=== PATIENT | female | born 1930 | race American Indian/Alaskan Native ===

== ENCOUNTER 2016-10-09 15:59 | Outpatient (CLI) | payer MEDICARE ==
--- NOTE | 2016-10-10 08:20 | Mammography Report ---
BILATERAL DIGITAL SCREENING MAMMOGRAM with CAD : 10/09/16 15:59:00 CLINICAL: Routine screening. COMPARISON:04/20/15 FINDINGS: The breasts are heterogeneously dense, which may obscure small masses.A right outer parenchymal asymmetry is unchanged compared to prior exams. No mass, architectural distortion or suspicious calcifications. IMPRESSION: No mammographic evidence of malignancy. BI-RADS CATEGORY: 2 -- Benign RECOMMENDATION: Routine mammographic screening in one year. COMMENT: Patient follow-up letters are generated by our [employer] application.
== END 2016-10-09 16:00 | disposition home or self-care (01) ==
LOC: SPVWC 15:59
DX: Z12.31 Encounter for screening mammogram for malignant neoplasm of breast (principal)
CPT/HCPCS: 77067; G0202

== ENCOUNTER 2017-10-19 14:02 | Outpatient (CLI) | payer MEDICARE ==
--- NOTE | 2017-10-19 15:37 | Mammography Report ---
BILATERAL DIGITAL SCREENING MAMMOGRAM with CAD: 10/19/17 14:02:00 CLINICAL: Routine screening. COMPARISON:10/09/16 and 04/20/15 FINDINGS: The breasts are heterogeneously dense, which may obscure small masses. A new right upper asymmetry requires additional imaging.No architectural distortion or suspicious calcifications.The left breast is negative. IMPRESSION: Right asymmetry requiring further workup. BI-RADS CATEGORY: 0 -- Additional Imaging Evaluation Required RECOMMENDATION: Recall for right mediolateral and spot magnification MLO views and right breast ultrasound if needed. ACR BI-RADS MAMMOGRAPHIC CODES: 0 = Needs additional imaging evaluation; 1 = Negative; 2 = Benign; 3 = Probably benign; 4 = Suspicious; 5 = Malignant; 6 = Known biopsy-proven malignancy COMMENT: 1. Dense breast tissue, i.e., adenosis, fibrocystic changes, etc., may obscure an underlying neoplasm. 2. Approximately 10% of cancers are not detected with mammography. 3. A negative mammography report should not delay biopsy if a clinically suspicious mass is present. COMMENT: Patient follow-up letters are generated via our [employer] application.
== END 2017-10-19 14:03 | disposition home or self-care (01) ==
LOC: SPVWC 14:02
DX: Z12.31 Encounter for screening mammogram for malignant neoplasm of breast (principal)
CPT/HCPCS: 77067

== ENCOUNTER 2017-10-29 12:39 | Outpatient (CLI) | payer MEDICARE ==
--- NOTE | 2017-10-29 16:08 | Ultrasound Report ---
RIGHT DIGITAL DIAGNOSTIC MAMMOGRAM and RIGHT BREAST ULTRASOUND: 10/29/17 12:39:00 CLINICAL: Recalled for asymmetry. COMPARISON:10/19/17 screening FINDINGS: ML and spot magnification MLO views were performed and are negative. Ultrasound of the upper outer right breast was performed and demonstrated no mass, cyst or shadowing. IMPRESSION: Negative mammogram and negative right breast ultrasound. BI-RADS CATEGORY: 2 - - Benign RECOMMENDATION: Routine mammographic screening in one year. ACR BI-RADS MAMMOGRAPHIC CODES: 0 = Needs additional imaging evaluation; 1 = Negative; 2 = Benign; 3 = Probably benign; 4 = Suspicious; 5 = Malignant; 6 = Known biopsy-proven malignancy COMMENT: 1. Dense breast tissue, i.e., adenosis, fibrocystic changes, etc., may obscure an underlying neoplasm. 2. Approximately 10% of cancers are not detected with mammography. 3. A negative mammography report should not delay biopsy if a clinically suspicious mass is present. COMMENT: Patient follow-up letters are generated via our [employer] application.
== END 2017-10-29 12:40 | disposition home or self-care (01) ==
LOC: SPVWC 12:39
DX: R92.8 Other abnormal and inconclusive findings on diagnostic imaging of breast (principal)

== ENCOUNTER 2019-01-29 07:06 | Emergency (ER) | payer MEDICARE ==
[2019-01-29] MEDS ORDERED: MORPHINE 4 MG/1 ML INJ IV ONE (07:23)
[2019-01-29] MEDS ORDERED: ONDANSETRON 4 MG/2 ML INJ IV ONE (07:23)
[2019-01-29] MEDS ORDERED: SODIUM CHLORIDE 0.9% 1000 ML 1,000 ML IV ONE (07:23)
--- NOTE | 2019-01-29 07:29 | Emergency Department Report ---
ED Abdominal Pain HPI - General Stated Complaint: CHEST PAIN Time Seen by Provider: 01/29/19 07:09 - History of Present Illness Initial Comments: Patient is 88-year-old female with recent diagnosis of hepatic cyst for which drainage was applied twice at [facility]. Last drainage was 2 weeks ago with a drainage in place. Patient stated that she was fine until this morning when she woke up and found that she is having right upper quadrant pain. Patient stated that she noticed that the drainage is becoming more cloudy. Patient denied any fever or chills. Patient also denied any nausea or vomiting. Patient denied any left sided or right-sided chest pain. She also denied any shortness of breath. MD Complaint: abdominal pain - Related Data Home Medications Medication Instructions Recorded Confirmed Last Taken Citalopram [celeXA] 10 mg PO QDAY 01/29/19 01/29/19 01/28/19 Clopidogrel [Plavix] 75 mg PO QDAY 01/29/19 01/29/19 01/28/19 Dronabinol [Marinol] 2.5 mg PO BID 01/29/19 01/29/19 01/28/19 Losartan [Cozaar] 100 mg PO QDAY 01/29/19 01/29/19 01/28/19 Pantoprazole Sodium [Protonix] 40 mg PO QDAC 01/29/19 01/29/19 01/28/19 Pravastatin [Pravachol] 20 mg PO QHS 01/29/19 01/29/19 01/28/19 Sucralfate [Carafate] 1 gm PO Q6HR 01/29/19 01/29/19 01/28/19 Allergies Allergy/AdvReac Type Severity Reaction Status Date / Time No Known Allergies Allergy Unverified 01/29/19 08:33 ED Review of Systems ROS: Stated complaint: CHEST PAIN Other details as noted in HPI Comment: All other systems reviewed and negative Constitutional: denies: chills, fever Respiratory: denies: cough, shortness of breath, SOB with exertion Cardiovascular: denies: chest pain, palpitations Gastrointestinal: abdominal pain. denies: nausea, vomiting, diarrhea, constipation, hematemesis, melena, hematochezia Genitourinary: denies: urgency Musculoskeletal: denies: back pain Neurological: denies: headache, weakness, numbness, paresthesias, confusion, abnormal gait ED Past Medical Hx - Medications Home Medications: Home Medications Medication Instructions Recorded Confirmed Last Taken Type Citalopram [celeXA] 10 mg PO QDAY 01/29/19 01/29/19 01/28/19 History Clopidogrel [Plavix] 75 mg PO QDAY 01/29/19 01/29/19 01/28/19 History Dronabinol [Marinol] 2.5 mg PO BID 01/29/19 01/29/19 01/28/19 History Losartan [Cozaar] 100 mg PO QDAY 01/29/19 01/29/19 01/28/19 History Pantoprazole Sodium [Protonix] 40 mg PO QDAC 01/29/19 01/29/19 01/28/19 History Pravastatin [Pravachol] 20 mg PO QHS 01/29/19 01/29/19 01/28/19 History Sucralfate [Carafate] 1 gm PO Q6HR 01/29/19 01/29/19 01/28/19 History ED Physical Exam - General General appearance: alert, in no apparent distress - Head Head exam: Present: atraumatic, normocephalic, normal inspection - Eye Eye exam: Present: normal appearance - ENT ENT exam: Present: normal exam, normal orophraynx, mucous membranes moist - Neck Neck exam: Present: normal inspection, full ROM. Absent: tenderness, meningismus, lymphadenopathy, thyromegaly - Respiratory Respiratory exam: Present: normal lung sounds bilaterally - Cardiovascular Cardiovascular Exam: Present: regular rate, normal rhythm, normal heart sounds - GI/Abdominal GI/Abdominal exam: Present: soft, normal bowel sounds, other (wound drainage in place. Cloudy brownish discharge.). Absent: distended, tenderness, guarding, rebound, rigid, diminished bowel sounds, organomegaly, mass, bruit, pulsatile mass, hernia - Extremities Exam Extremities exam: Present: normal inspection, full ROM, normal capillary refill - Back Exam Back exam: Present: normal inspection, full ROM. Absent: CVA tenderness (R), CVA tenderness (L), muscle spasm, paraspinal tenderness, vertebral tenderness, rash noted - Neurological Exam Neurological exam: Present: alert, oriented X3, CN II-XII intact, normal gait, reflexes normal - Psychiatric Psychiatric exam: Present: normal mood - Skin Skin exam: Present: warm, intact, normal color ED Course Vital Signs 01/29/19 01/29/19 01/29/19 07:29 07:30 07:35 Temperature 98.4 F Pulse Rate 79 71 Respiratory 18 Rate Blood Pressure 165/84 Blood Pressure 165/84 [Left] O2 Sat by Pulse 100 100 100 Oximetry 01/29/19 01/29/19 01/29/19 07:45 08:00 08:15 Temperature Pulse Rate 88 96 H 84 Respiratory 14 22 16 Rate Blood Pressure 163/76 167/96 168/74 Blood Pressure [Left] O2 Sat by Pulse 100 100 100 Oximetry 01/29/19 01/29/19 01/29/19 08:30 08:45 09:01 Temperature Pulse Rate 83 78 89 Respiratory 17 18 19 Rate Blood Pressure 168/74 168/74 168/74 Blood Pressure [Left] O2 Sat by Pulse 100 98 100 Oximetry 01/29/19 01/29/19 01/29/19 09:15 09:31 09:50 Temperature Pulse Rate 90 91 H Respiratory 21 18 16 Rate Blood Pressure 168/74 168/74 Blood Pressure [Left] O2 Sat by Pulse 100 100 Oximetry 01/29/19 01/29/19 01/29/19 10:20 11:25 11:31 Temperature Pulse Rate 74 Respiratory 16 15 Rate Blood Pressure 168/74 168/74 Blood Pressure [Left] O2 Sat by Pulse 99 Oximetry 01/29/19 01/29/19 01/29/19 11:45 12:01 12:15 Temperature Pulse Rate 80 90 68 Respiratory 15 16 16 Rate Blood Pressure 168/74 168/74 151/65 Blood Pressure [Left] O2 Sat by Pulse 100 100 99 Oximetry 01/29/19 12:31 Temperature Pulse Rate 70 Respiratory 15 Rate Blood Pressure 151/65 Blood Pressure [Left] O2 Sat by Pulse 98 Oximetry ED Medical Decision Making - Lab Data Result diagrams: 01/29/19 07:27 01/29/19 07:27 - Radiology Data Radiology results: report reviewed - Medical Decision Making Patient is 88-year-old female with recent diagnosis of hepatic cyst for which drainage was applied twice at [facility]. Last drainage was 2 weeks ago with a drainage in place. Patient stated that she was fine until this morning when she woke up and found that she is having right upper quadrant pain. Patient stated that she noticed that the drainage is becoming more cloudy. Patient denied any fever or chills. Patient also denied any nausea or vomiting. Patient denied any left sided or right-sided chest pain. She also denied any shortness of breath. Patient labs reviewed and is unremarkable. CT abdomen and pelvis showed air-fluid levels collection in the dorm while deliver measuring 9.9 cm time 5.6 cm. I discussed the patient was Dr. Giles from [facility], surgeon carbon dioxide operator for Dr. Ambrocio. Dr. Giles accepted the patient to be transferred to [facility] for further management. I discussed the patient also is Dr. Pineda, hospitalist, and he accepted the patient to be transferred. Critical Care Time: Yes Critical care time in (mins) excluding proc time.: 30 Critical care attestation.: If time is entered above; I have spent that time in minutes in the direct care of this critically ill patient, excluding procedure time. ED Disposition Clinical Impression: Abdominal pain, Liver abscess Disposition: [id number] ANOTHER TYPE HLTHCARE Is pt being admited?: No Condition: Stable Referrals: PRIMARY CARE, [Primary Care Provider] - 3-5 Days
[2019-01-29] MEDS ORDERED: PIPERACILLIN/TAZOBACTAM 3.375 3.375 GM/50 ML BAG IV ONE (07:31)
[2019-01-29 07:54] LABS: Basophils # (Auto) 0.1 K/mm3 (0.0-0.1); Basophils % (Auto) 0.8 % (0.0-1.8); Eosinophils # (Auto) 0.1 K/mm3 (0.0-0.4); Eosinophils % (Auto) 1.4 % (0.0-4.3); Hematocrit 27.8 % (30.3-42.9); Hemoglobin 9.3 gm/dl (10.1-14.3); Lymphocytes # (Auto) 1.2 K/mm3 (1.2-5.4); Lymphocytes % (Auto) 16.6 % (13.4-35.0); Mean Corpuscular HGB Conc 34 % (30-34); Mean Corpuscular Volume 88 fl (79-97); Monocytes # (Auto) 1.1 K/mm3 (0.0-0.8); Monocytes % (Auto) 15.6 % (0.0-7.3); Platelet Count 448 K/mm3 (140-440); Red Blood Count 3.17 M/mm3 (3.65-5.03); Red Cell Distribution Width 14.9 % (13.2-15.2)
[2019-01-29 08:15] LABS: Alanine Aminotransferase 13 units/L (7-56); Albumin 2.4 g/dL (3.9-5); BUN/Creatinine Ratio 14; Bilirubin,Direct 0.2 mg/dL (0-0.2); Blood Urea Nitrogen 10 mg/dL (7-17); Hemolysis Index 0
[2019-01-29] MEDS ORDERED: ONDANSETRON 4 MG/2 ML INJ IM ONE (09:29)
[2019-01-29] MEDS ORDERED: MORPHINE 4 MG/1 ML INJ IM ONE (09:29)
[2019-01-29 09:38] LABS: Bilirubin,Urine NEG (Negative); Blood,Urine NEG (Negative); Color,Urine Yellow (Yellow); Protein,Urine <15 mg/dL mg/dL (Negative); RBC,Urine < 1.0 /HPF (0.0-6.0); Urobilinogen,Urine < 2.0 mg/dL (<2.0)
--- NOTE | 2019-01-29 11:43 | Cat Scan Report ---
CT ABDOMEN AND PELVIS WITH CONTRAST INDICATION: Unspecified abdominal pain for one week. COMPARISON: No relevant prior imaging study available. TECHNIQUE: Axial, coronal and sagittal CT imaging of the abdomen and pelvis was performed after inje ction of 100 mm [address] scans at this location are performed using CT dose reduction fo r ALARA by means of automated exposure control. FINDINGS: LOWER CHEST: There is a small right pleural effusion with associated atelectasis. The heart is normal in size with a small pericardial effusion. LIVER: A large air-containing fluid collection is seen along the hepatic dome measuring 9.9 x 5.8 cm. A drain is in good position within this collection. Cysts are seen along the left hepatic lobe measu ring up to 2.7 cm. No other significant abnormality is seen. BILIARY: No significant abnormality. PANCREAS: No significant abnormality. SPLEEN: No significant abnormality. ADRENALS: No significant abnormality. KIDNEYS AND URETERS: There are multiple bilateral renal cysts. The largest cyst is located anteriorly along the left upper renal pole with a simple appearance measuring 1.9 cm. No other significant abno rmality is seen. GI TRACT: No significant abnormality of the stomach, small bowel or colon. Unremarkable appendix. PERITONEUM: A trace amount of free fluid is seen along the pelvis. No free air. No other organized fl uid collection is seen. LYMPH NODES: No significant adenopathy. VASCULATURE: The aorta is normal in caliber with diffuse atherosclerosis. URINARY BLADDER: No significant abnormality. REPRODUCTIVE ORGANS: No significant abnormality. ADDITIONAL FINDINGS: None. SKELETAL SYSTEM: No acute abnormality is seen. There are degenerative changes throughout the spine. IMPRESSION: 1. Large hepatic fluid collection versus abscess with good positioning of a previously placed drain. 2. No other acute abnormality of the abdomen or pelvis. 3. Additional findings as above. Signer Name: Rikki Hardy MD Signed: 01/29/2019 11:38 AM Workstation Name: [id number]
[2019-01-29] MEDS ORDERED: hydrALAZINE 20 MG/1 ML INJ IV ONE (13:49)
[2019-01-29 13:54] VITALS: BP 183/86
== END 2019-01-29 13:54 | disposition other institution (70) ==
LOC: ED 07:06
DX: K75.0 Abscess of liver (principal); Z79.899 Other long term (current) drug therapy
CPT/HCPCS: 36415; 74177; 80048; 80076; 81001; 82150; 83690; 84484; 85025; 87040; 93005; 93010; 96365; 96372; 96375; 99291; J0360; J2270; J2405; J2543; J7030; Q9967